=== PATIENT | male | born 1985 | race Two or more races ===

== ENCOUNTER 2017-03-23 17:40 | Emergency (ER) | payer MEDICAID ==
[~2017-03-23] VITALS: Ht 182.9 cm; Wt 93.0 kg
[2017-03-23] MEDS ORDERED: TDAP DIPH,PERTUSS,TET VAC/PF 0.5 ML DISP.SYRIN IM ONE ×2 (19:00→19:14)
[2017-03-23] MEDS ORDERED: LIDOCAINE 1%-EPI 1:100,000 20 ML VIAL TP ONE (19:00)
[2017-03-23] MEDS ORDERED: IV NORMAL SALINE 1000 ML BAG IV ONE (19:00)
[2017-03-23] MEDS ORDERED: CEFAZOLIN 1 G in IV DEXTROSE 5% 50 ML IV ONE (19:00)
[2017-03-23 19:13] LABS: BASOPHILS # (AUTO) 0.6 K/uL (0.0-8.0); BASOPHILS % (AUTO) 4.2 % (0.0-2.0); EOSINOPHILS % (AUTO) 0.1 % (0.0-7.0); HEMOGLOBIN 16.8 G/DL (14.0-18.0); LYMPHOCYTES # (AUTO) 0.8 K/UL (0.8-4.8); MEAN CORPUSCULAR HEMOGLOBIN 31.1 UUG (27.0-31.0); MEAN CORPUSCULAR HGB CONC 34 g/dL (32.0-37.0); MEAN CORPUSCULAR VOLUME 92.9 FL (82.0-92.0); MONOCYTES # (AUTO) 0.9 K/UL (0.1-1.30); MONOCYTES % (AUTO) 6.1 % (0.0-11.0); NEUTROPHILS # (AUTO) 11.8 K/UL (1.8-8.9); NEUTROPHILS % (AUTO) 83.6 % (38.5-71.5); PLATELET COUNT (AUTO) 191 K/UL (150-450); RED BLOOD CELL COUNT(AUTO) 5.39 MIL/UL (4.7-6.1); WHITE BLOOD COUNT (AUTO) 14.1 K/UL (4.0-11.2)
[2017-03-23] MEDS ORDERED: CEFAZOLIN 1 G VIAL ONE (19:14)
--- NOTE | 2017-03-23 19:15 | NUR ---
Patient in room A/Ox4. Denies SOB,N/V. Wound Tx as ordered on chin. Patient with no distress noted
[2017-03-23 19:22] LABS: CREATININE 1.3 mg/dL (0.6-1.3)
[2017-03-23] MEDS ORDERED: LIDOCAINE 2%-EPI 1:100,000 20 ML VIAL ONE (19:25)
[2017-03-23 19:26] LABS: ETHANOL < 3 MG/DL (0-0)
[2017-03-23 19:28] LABS: BILIRUBIN,DIRECT 0.1 mg/dL (0.0-0.2); TOTAL PROTEIN, SERUM 8.2 g/dL (6.4-8.2)
[2017-03-23 19:35] LABS: BAND % (MANUAL) 11 % (0-10); LYMPHOCYTES % (MANUAL) 5 % (20-40); MONOCYTES % (MANUAL) 4 % (2-10); NEUTROPHILS % (MANUAL) 80 % (42-75)
[2017-03-23] MEDS ORDERED: LIDOCAINE 2%-EPI 1:100,000 20 ML VIAL TP ONE (19:45)
--- NOTE | 2017-03-23 20:10 | NUR ---
Dr Strickland into do suture on patient
--- NOTE | 2017-03-23 20:40 | NUR ---
Patient discharged to home in stable conditon with family taking patient home. Written and verbal after care instructions given. Patient verbalizes understanding of instructions. Walked out of ER with steady gait
[2017-03-23 20:41] VITALS: BP 116/65
== END 2017-03-23 20:41 | disposition home or self-care (01) ==
LOC: ER 17:40
DX: S01.81XA Laceration without foreign body of other part of head, initial encounter (principal); R55 Syncope and collapse; E86.0 Dehydration; Y08.89XA Assault by other specified means, initial encounter; Y93.89 Activity, other specified; Y92.9 Unspecified place or not applicable; Y99.9 Unspecified external cause status
CPT/HCPCS: 12013; 36415; 70450; 70486; 71010; 80048; 80076; 84484; 85025; 90471; 90715; 93005; 96365; 99285; A4217; A4663; G0480; J0690; J3490; J7030 ×2; J7060; 70030-TC